=== PATIENT | male | born 1975 | race Caucasian/White ===

== ENCOUNTER 2018-11-06 12:00 | Emergency (ER) | payer SELFPAY ==
[~2018-11-06] VITALS: Ht 185.4 cm; Wt 81.6 kg
[2018-11-06 12:22] VITALS: BP 139/79
[2018-11-06] MEDS ORDERED: ACYC400T PO (12:39)
[2018-11-06] MEDS ORDERED: MELO7.5T29 PO (12:39)
--- NOTE | 2018-11-06 12:40 | PHYS DOC ---
Past History Past Medical History: Other Additional Past Medical Histor: hepatitis C Past Surgical History: No Surgical History Smoking: Cigarettes, Greater than 1 pack/day Alcohol Use: None Drug Use: None Adult General Chief Complaint Chief Complaint: SEXUALLY TRANSMITTED DISEASE HPI HPI Patient is a 43-year-old male presents with a rash on his penis. This is been present for the past week to week and a half. Any kind of touch makes it worse. Denies any fever. Denies any dysuria. Patient has been sexually active with several partners. Nothing seems to make the symptoms better. Denies any bleeding. Denies any trauma. Symptoms are moderate to severe in intensity.[] Review of Systems Review of Systems Constitutional: Denies fever or chills [] Eyes: Denies change in visual acuity, redness, or eye pain [] HENT: Denies nasal congestion or sore throat [] Respiratory: Denies cough or shortness of breath [] Cardiovascular: No chest pain or palpitations[] GI: Denies abdominal pain, nausea, vomiting, bloody stools or diarrhea [] : Denies dysuria or hematuria [] Musculoskeletal: Denies back pain or joint pain [] Integument: See history of present illness[] Neurologic: Denies headache, focal weakness or sensory changes [] Endocrine: Denies polyuria or polydipsia [] All other systems were reviewed and found to be within normal limits, except as documented in this note. Allergies Allergies Allergies Coded Allergies Type Severity Reaction Last Updated Verified No Known Drug Allergies 11/01/13 No Physical Exam Physical Exam Constitutional: Well developed, well nourished, no acute distress, non-toxic appearance. [] HENT: Normocephalic, atraumatic, bilateral external ears normal, oropharynx moist, no oral exudates, nose normal. [] Eyes: PERRLA, EOMI, conjunctiva normal, no discharge. [] Neck: Normal range of motion, no tenderness, supple, no stridor. [] Cardiovascular:Heart rate regular rhythm, no murmur [] Lungs & Thorax: Bilateral breath sounds clear to auscultation [] Abdomen: Bowel sounds normal, soft, no tenderness, no masses, no pulsatile masses. : Normal male, circumcised, bilateral descended testes without tenderness. No urethral discharge. There several ulcerated areas on the dorsal aspect of the davidson. No pimples or blisters noted. [] Skin: Aside from the region: Warm, dry, no erythema, no rash. [] Back: No tenderness, no CVA tenderness. [] Extremities: No tenderness, no cyanosis, no clubbing, ROM intact, no edema. [] Neurologic: Alert and oriented X 3, normal motor function, normal sensory function, no focal deficits noted. [] Psychologic: Affect normal, judgement normal, mood normal. [] EKG EKG [] Radiology/Procedures Radiology/Procedures [] Course & Med Decision Making Course & Med Decision Making Pertinent Labs and Imaging studies reviewed. (See chart for details) Medical decision making: Concerned about herpes virus given the appearance of the rash. Other STDs are being evaluated for and will be treated if they are positive. There is no evidence of sepsis. No evidence of staph scalded skin syndrome. No evidence of toxic epidermal necrolysis. No syphilitic buboe, no chancroid.[] Dragon Disclaimer Dragon Disclaimer This electronic medical record was generated, in whole or in part, using a voice recognition dictation system. Departure Departure: Impression: Primary Impression: Herpes genitalis in men Disposition: HOME, SELF-CARE Condition: IMPROVED Referrals: PCPDEDRICK (PCP) Patient Instructions: Genital Herpes Additional Instructions: No sexual intercourse until evaluated by your primary care physician. Keep the area clean and dry. Follow-up with your regular doctor in 2 days. Take medication as prescribed. Return to the ER if worsening pain, fever of more than 101, or any other concerns. Scripts Meloxicam (MELOXICAM) 7.5 Mg Tablet 7.5 MG PO DAILY for PAIN, #20 TAB Prov: KIMI MULLINS DO 11/06/18 Acyclovir (ACYCLOVIR) 400 Mg Tablet 1 TAB PO TID for herpes virus, #30 TAB Prov: KIMI MULLINS DO 11/06/18 KIMI MULLINS DO November 06, 2018 12:40
[2018-11-06 12:56] LABS: BACTERIA,URINE 0 /HPF (0-FEW); BILIRUBIN,URINE NEG (NEG); CLARITY,URINE CLEAR; COLOR,URINE AMBER; GLUCOSE,URINE NEG (NEG); NITRITE,URINE NEG (NEG); RBC,URINE 0 /HPF (0-2); SQUAMOUS EPITHELIAL CELL,UR OCC /LPF; UROBILINOGEN,URINE 0.2 mg/dL (0.2 mg/dL); WBC,URINE 0 /HPF (0-4)
[2018-11-16 11:08] LABS: VIRAL CULT FINAL No virus isolated. (.)
== END 2018-11-06 12:45 | disposition home or self-care (01) ==
LOC: ER 12:00
DX: A60.02 Herpesviral infection of other male genital organs (principal); F17.210 Nicotine dependence, cigarettes, uncomplicated
CPT/HCPCS: 36415; 81001; 87252; 87491; 87591; 99284

== ENCOUNTER 2020-02-12 04:21 | Emergency (ER) | payer SELFPAY ==
[~2020-02-12] VITALS: Ht 185.4 cm; Wt 84.0 kg
[~2020-02-12 04:21] MED LIST: ACYC400T PO; MELO7.5T29 PO
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
[2020-02-12] MEDS ORDERED: KETOROLAC 60 MG/2 ML VIAL. IM ONE (05:15)
[2020-02-12 05:23] LABS: BARBITURATES NEG (NEG); BENZODIAZEPINES NEG (NEG); CANNABINOIDS NEG (NEG); COCAINE NEG (NEG); METHADONE NEG (NEG); OPIATES NEG (NEG); PHENCYCLIDINE NEG (NEG)
[2020-02-12 05:25] LABS: AMPHETAMINE/METHAMPHETAMINE POS (NEG)
[2020-02-12 05:29] LABS: BACTERIA,URINE 0 /HPF (0-FEW); BILIRUBIN,URINE NEG (NEG); CLARITY,URINE CLEAR; COLOR,URINE YELLOW; GLUCOSE,URINE NEG (NEG); NITRITE,URINE NEG (NEG); RBC,URINE 0 /HPF (0-2); SQUAMOUS EPITHELIAL CELL,UR OCC /LPF; UROBILINOGEN,URINE 0.2 mg/dL (0.2 mg/dL); WBC,URINE 0 /HPF (0-4)
[2020-02-12 05:30] VITALS: BP 125/95
== END 2020-02-12 05:30 | disposition home or self-care (01) ==
LOC: ER 04:21
DX: F15.10 Other stimulant abuse, uncomplicated (principal); G89.29 Other chronic pain; M54.5 Low back pain; R30.0 Dysuria; F41.9 Anxiety disorder, unspecified; M19.90 Unspecified osteoarthritis, unspecified site; F31.9 Bipolar disorder, unspecified; F20.9 Schizophrenia, unspecified; F43.10 Post-traumatic stress disorder, unspecified; F17.210 Nicotine dependence, cigarettes, uncomplicated; F12.10 Cannabis abuse, uncomplicated
CPT/HCPCS: 36415; 80307; 81001; 96372; 99283; J1885

== ENCOUNTER 2020-04-08 12:16 | Emergency (ER) | payer SELFPAY ==
[~2020-04-08] VITALS: Ht 185.4 cm; Wt 77.0 kg
[2020-04-08 12:51] VITALS: BP 120/69
--- NOTE | 2020-04-08 13:36 | PHYS DOC ---
Past History Past Medical History: Anxiety, Arthritis, Bipolar, Hepatitis, Schizophrenia, STD, Other Additional Past Medical Histor: hepatitis C Past Surgical History: No Surgical History Smoking: Cigarettes, Greater than 1 pack/day Alcohol Use: None Drug Use: Amphetamine, Marijuana, Methamphetamine General Adult EDM: Chief Complaint: SUICIDAL IDEATION HPI: HPI: 44-year-old male presents with suicidal ideation. He was seen here by the [facility]. Patient is hep C positive. He is not sure if he is HIV positive he has requested that we test him. He has been having persistent suicidal thoughts for "some time". He does not have a specific plan. He is just tired of these thoughts. He denies any other medical complaints Review of Systems: Review of Systems: Constitutional: Denies fever or chills Eyes: Denies change in visual acuity HENT: Denies nasal congestion or sore throat Respiratory: Denies cough or shortness of breath Cardiovascular: Denies chest pain or edema GI: Denies abdominal pain, nausea, vomiting, bloody stools or diarrhea : Denies dysuria Musculoskeletal: Denies back pain or joint pain Integument: Denies rash Neurologic: Denies headache, focal weakness or sensory changes Endocrine: Denies polyuria or polydipsia Lymphatic: Denies swollen glands Psychiatric: Depression, suicidal ideation Allergies: Allergies: Allergies Coded Allergies Type Severity Reaction Last Updated Verified No Known Drug Allergies 04/08/20 No Physical Exam: PE: Constitutional: Well developed, well nourished, no acute distress, non-toxic appearance. [] HENT: Normocephalic, atraumatic, bilateral external ears normal, oropharynx moist, no oral exudates, nose normal. [] Eyes: PERRLA, EOMI, conjunctiva normal, no discharge. [] Neck: Normal range of motion, no tenderness, supple, no stridor. [] Cardiovascular: Heart rate regular rhythm, no murmur [] Lungs & Thorax: Bilateral breath sounds clear to auscultation [] Abdomen: Bowel sounds normal, soft, no tenderness, no masses, no pulsatile masses. [] Skin: Warm, dry, no erythema, no rash. [] Back: No tenderness, no CVA tenderness. [] Extremities: No tenderness, no cyanosis, no clubbing, ROM intact, no edema. [] Neurologic: Alert and oriented X 3, normal motor function, normal sensory function, no focal deficits noted. [] Psychologic: Affect normal, judgement normal, mood depressed. [] Current Patient Data: Vital Signs: Vital Signs Date Time Temp Pulse Resp B/P (MAP) Pulse Ox O2 Delivery O2 Flow Rate FiO2 04/08/20 12:51 98.3 96 18 120/69 (86) 98 EKG: EKG: [] Radiology/Procedures: Radiology/Procedures: [] Heart Score: Risk Factors: Risk Factors: DM, Current or recent (<one month) smoker, HTN, HLP, family history of CAD, obesity. Risk Scores: Score 0 - 3: 2.5% MACE over next 6 weeks - Discharge Home Score 4 - 6: 20.3% MACE over next 6 weeks - Admit for Clinical Observation Score 7 - 10: 72.7% MACE over next 6 weeks - Early Invasive Strategies Course & Med Decision Making: Course & Med Decision Making Pertinent Labs and Imaging studies reviewed. (See chart for details) The patient's labs are unremarkable. I have ordered HIV as he requested. The results are not back yet. He will follow-up in the future. He is medically stable for psychiatric evaluation. The psychiatric screener has determined that the patient can be safely discharged with a safety plan. I agree this is reasonable. He is stable for discharge at this time. [] Sivan Disclaimer: Sivan Disclaimer: This electronic medical record was generated, in whole or in part, using a voice recognition dictation system. Departure Departure: Impression: Primary Impression: Suicidal thoughts Disposition: 01 DC HOME SELF CARE/HOMELESS Condition: STABLE Referrals: PCP,DEDRICK (PCP) Patient Instructions: Suicidal Feelings, How to Help Yourself TAD LUZ DO Apr 08, 2020 13:36
[2020-04-08 13:45] LABS: BASO % 0 % (0-3); EOS # 0.2 x10^3/uL (0.0-0.7); EOS % 3 % (0-3); HEMOGLOBIN 14.1 g/dL (13.0-17.5); LYMPH # 1.7 x10^3/uL (1.0-4.8); LYMPH % 26 % (24-48); MEAN CORPUSCULAR HEMOGLOBIN 30 pg (25-35); MEAN CORPUSCULAR HGB CONC 34 g/dL (31-37); MEAN CORPUSCULAR VOLUME 89 fL (79-100); MONO # 0.5 x10^3/uL (0.0-1.1); MONO % 8 % (0-9); NEUT % 63 % (31-73); PLATELET COUNT 279 x10^3/uL (140-400); RED BLOOD COUNT 4.72 x10^6/uL (4.30-5.70); RED CELL DISTRIBUTION WIDTH 12.7 % (11.5-14.5); WHITE BLOOD COUNT 6.4 x10^3/uL (4.0-11.0)
[2020-04-08 14:03] LABS: CALCIUM 8.7 mg/dL (8.5-10.1); CREATININE 1.1 mg/dL (0.7-1.3); GFR 72.1; POTASSIUM 3.2 mmol/L (3.5-5.1)
[2020-04-08 14:15] LABS: ALBUMIN 3.4 g/dL (3.4-5.0); ALBUMIN/GLOBULIN RATIO 0.9 (1.0-1.7); TOTAL BILIRUBIN 0.2 mg/dL (0.2-1.0)
[2020-04-08] MEDS ORDERED: NAPROXEN 500 MG TABLET PO ONE (15:30)
== END 2020-04-08 15:55 | disposition home or self-care (01) ==
LOC: ER 12:16
DX: R45.851 Suicidal ideations (principal); F41.9 Anxiety disorder, unspecified; M19.90 Unspecified osteoarthritis, unspecified site; F31.9 Bipolar disorder, unspecified; F20.9 Schizophrenia, unspecified; F17.210 Nicotine dependence, cigarettes, uncomplicated; F15.10 Other stimulant abuse, uncomplicated; F12.10 Cannabis abuse, uncomplicated
CPT/HCPCS: 36415; 80053; 85025; 86703; 99284; 99285

== ENCOUNTER 2020-04-28 17:05 | Emergency (ER) | payer SELFPAY ==
[~2020-04-28] VITALS: Ht 185.4 cm; Wt 89.0 kg
[2020-04-28 17:20] VITALS: BP 122/73
--- NOTE | 2020-04-28 17:38 | PHYS DOC ---
Past History Past Medical History: Anxiety, Arthritis, Bipolar, Depression, Hepatitis, Schizophrenia, STD, Other Additional Past Medical Histor: hepatitis C Past Surgical History: No Surgical History Smoking: Cigarettes, Greater than 1 pack/day Alcohol Use: None Drug Use: Amphetamine, Marijuana, Methamphetamine General Adult EDM: Chief Complaint: SUICIDAL IDEATION HPI: HPI: "... I am having too many thoughts about suicide... I probably need to get back on my meds... I been off for approximately a year now... I was on Haldol, Seroquel and Klonopin... Has had problems with depression, bipolar and schizoaffective disorder... I tried to kill myself before by overdosing on my prescription meds... The last time I tried to kill myself by overdosing on meth... The last place that was about it was [facility]... I have also been to also [facility]... Patient is a 44 year old male who presents with above hx and complaints of suicidal ideation. Patient denies any active hallucinations currently. Does admit to methamphetamine use, tobacco and marijuana use. Patient primary use of methamphetamine is my smoking it. Patient states he has had depression anxiety problems since a teenager. Patient has past medical history of arthritis, anxiety, bipolar, hepatitis C, SCDs, tobacco, marijuana, methamphetamine use. No recent travel outside the [place] area. No specific ill contacts. Patient not following with primary care currently. Patient does not verbalize a specific plan for killing himself, it is anxious he may act upon the thoughts. Patient seen on April 08 for similar presentation. Evaluated by telepsych at that time felt to be medically /psychologically stable on the visit of 04/08. Review of Systems: Review of Systems: Constitutional: Denies fever or chills Eyes: Denies change in visual acuity HENT: Denies nasal congestion or sore throat Respiratory: Denies cough or shortness of breath Cardiovascular: Denies chest pain or edema GI: Denies abdominal pain, nausea, vomiting, bloody stools or diarrhea : Denies dysuria Musculoskeletal: Denies back pain or joint pain Integument: Denies rash Neurologic: Denies headache, focal weakness or sensory changes Endocrine: Denies polyuria or polydipsia Lymphatic: Denies swollen glands Psychiatric: Complains of depression and anxiety Family History: Family History: Pt. reports mother is " Fuck up" mental, refuses to give further hx., Father history is limited Current Medications: Current Meds: See nursing for home meds Allergies: Allergies: Allergies Coded Allergies Type Severity Reaction Last Updated Verified No Known Drug Allergies 04/08/20 No Physical Exam: PE: Constitutional: no acute distress, non-toxic appearance. [] HENT: Normocephalic, atraumatic, bilateral external ears normal, oropharynx moist, no oral exudates, nose normal. [] Eyes: PERRLA, EOMI, conjunctiva normal, no discharge. [] Neck: Normal range of motion, no tenderness, supple, no stridor. [] Cardiovascular:Heart rate regular rhythm, no murmur [] Lungs & Thorax: Bilateral breath sounds equal apex with scattered wheezes on auscultation [] Abdomen: Bowel sounds normal, soft, no tenderness, no masses, no pulsatile masses. [] Skin: Warm, dry, no erythema, no rash. Tattoos Back: No tenderness, no CVA tenderness. [] Extremities: No tenderness, no cyanosis, no clubbing, ROM intact, no edema. [] Neurologic: Alert and oriented X 3, moves all extremities and has distal sensory no focal deficits noted. [] Psychologic: Affect anxious, judgement normal, mood reports depression and frequent thoughts of suicidal ideation Current Patient Data: Vital Signs: Vital Signs Date Time Temp Pulse Resp B/P (MAP) Pulse Ox O2 Delivery O2 Flow Rate FiO2 04/28/20 17:20 97.9 92 16 122/73 (89) 98 Room Air EKG: EKG: My interpretation EKG shows a sinus rhythm at 83 bpm. No findings acute morphology [] Radiology/Procedures: Radiology/Procedures: [][address] [address] IMAGING REPORT Signed PATIENT: HALIMA TRONCOSO ACCOUNT: [id number] : 1975 LOCATION: ER AGE: 44 SEX: M EXAM STATUS: REG ER ORD. PHYSICIAN: MARCO DEL REAL MD REASON: dyspnea, smoking meth PROCEDURE: PORTABLE CHEST 1V PORTABLE CHEST 1V History: Reason: dyspnea, smoking meth / Spl. Instructions: / History: Comparison: None. Findings: No consolidation or pleural effusion. Normal heart size. No pneumothorax. Impression: 1. No acute cardiopulmonary process. Electronically signed by: Juan A Stanley DO (04/28/2020 6:04 PM) [facility] DICTATED AND SIGNED BY: JUAN A STANLEY DO DATE: 04/28/20 1807 CC: MARCO DEL REAL MD; PCP,NO ~ Heart Score: Risk Factors: Risk Factors: DM, Current or recent (<one month) smoker, HTN, HLP, family history of CAD, obesity. Risk Scores: Score 0 - 3: 2.5% MACE over next 6 weeks - Discharge Home Score 4 - 6: 20.3% MACE over next 6 weeks - Admit for Clinical Observation Score 7 - 10: 72.7% MACE over next 6 weeks - Early Invasive Strategies Course & Med Decision Making: Course & Med Decision Making Pertinent Labs and Imaging studies reviewed. (See chart for details) Pt. at 2100 hrs. refused to talk to Tele.Psych. Pt. then demanded immediate discharge, and his property returned to him. Pt. encouraged to follow up with counseling center. Impression: 1. Reports suicidal ideation 2. History of depression bipolar 3. History of methamphetamine abuse 4. Tobacco marijuana use 5. Hx Hepatitis C 6. Hx. of Schizoaffective Disorder [] Dragon Disclaimer: Dragsusi Disclaimer: This electronic medical record was generated, in whole or in part, using a voice recognition dictation system. Departure Departure: Referrals: PCP,DEDRICK (PCP) [place]on Disclaimer This chart was dictated in whole or in part using Voice Recognition software in a busy, high-work load, and often noisy Emergency Department environment. It may contain unintended and wholly unrecognized errors or omissions. MARCO DEL REAL MD Apr 28, 2020 17:38
[2020-04-28] MEDS ORDERED: MVI, ADULT NO.4 WITH VIT K 10 ML, THIAMINE INJ 100 MG in IV RINGERS SOLUTION,LACTATED 1... IV ONE (17:45)
[2020-04-28 17:58] LABS: BASO % 1 % (0-3); EOS # 0.2 x10^3/uL (0.0-0.7); EOS % 3 % (0-3); HEMOGLOBIN 14.2 g/dL (13.0-17.5); LYMPH # 1.7 x10^3/uL (1.0-4.8); LYMPH % 26 % (24-48); MEAN CORPUSCULAR HEMOGLOBIN 30 pg (25-35); MEAN CORPUSCULAR HGB CONC 33 g/dL (31-37); MEAN CORPUSCULAR VOLUME 90 fL (79-100); MONO # 0.8 x10^3/uL (0.0-1.1); MONO % 12 % (0-9); NEUT # 3.8 x10^3uL (1.8-7.7); NEUT % 59 % (31-73); PLATELET COUNT 260 x10^3/uL (140-400); RED BLOOD COUNT 4.79 x10^6/uL (4.30-5.70); RED CELL DISTRIBUTION WIDTH 12.9 % (11.5-14.5); WHITE BLOOD COUNT 6.5 x10^3/uL (4.0-11.0)
--- NOTE | 2020-04-28 18:07 | RAD ---
PORTABLE CHEST 1V History: Reason: dyspnea, smoking meth / Spl. Instructions: / History: Comparison: None. Findings: No consolidation or pleural effusion. Normal heart size. No pneumothorax. Impression: 1. No acute cardiopulmonary process. Electronically signed by: Juan A Khan DO (04/28/2020 6:04 PM) [facility]
--- NOTE | 2020-04-28 18:07 | EKG ---
[address] [address] Test Date: 2020-04-28 Test Time: 18:02:39 Pat Name: HALIMA TRONCOSO Department: Room: Gender: M Orthotic/Prosthetic Practitioner: JENNIFER : 1975 Requested By: MARCO DEL REAL Order Number: [id number] Reading MD: Measurements Intervals [place] Rate: 83 P: 65 SD: 148 QRS: 19 QRSD: 68 T: 44 QT: 356 QTc: 424 Interpretive Statements SINUS RHYTHM OTHERWISE NORMAL ECG RI6.02 No previous ECG available for comparison
[2020-04-28] MEDS ORDERED: THIAMINE IM 200 MG/2 ML VIAL. IM ONE (18:13)
[2020-04-28] MEDS ORDERED: MVI, ADULT NO.4 WITH VIT K 10 ML VIAL IV ONE (18:13)
[2020-04-28 18:33] LABS: CALCIUM 9.4 mg/dL (8.5-10.1); CREATININE 0.9 mg/dL (0.7-1.3); GFR 90.8; POTASSIUM 3.9 mmol/L (3.5-5.1)
[2020-04-28 18:39] LABS: ALBUMIN 3.4 g/dL (3.4-5.0); DIRECT BILIRUBIN 0.1 mg/dL (0.0-0.2); MAGNESIUM 2.1 mg/dL (1.8-2.4); TOTAL BILIRUBIN 0.1 mg/dL (0.2-1.0); TOTAL PROTEIN 6.7 g/dL (6.4-8.2)
[2020-04-28 18:44] LABS: SALIC < 2.8 mg/dL (2.8-20.0)
[2020-04-28 18:45] LABS: ACETAMIN < 2.0 mcg/mL (10-30); ETHANOL < 10 mg/dL (0-10)
[2020-04-28 20:04] LABS: BACTERIA,URINE 0 /HPF (0-FEW); BILIRUBIN,URINE NEG (NEG); CLARITY,URINE CLEAR; COLOR,URINE STRAW; GLUCOSE,URINE NEG (NEG); NITRITE,URINE NEG (NEG); RBC,URINE 0 /HPF (0-2); UROBILINOGEN,URINE 0.2 mg/dL (0.2 mg/dL); WBC,URINE 0 /HPF (0-4)
[2020-04-28 20:12] LABS: BARBITURATES NEG (NEG); BENZODIAZEPINES NEG (NEG); CANNABINOIDS NEG (NEG); COCAINE NEG (NEG); METHADONE NEG (NEG); OPIATES NEG (NEG); PHENCYCLIDINE NEG (NEG)
[2020-04-28 20:22] LABS: AMPHETAMINE/METHAMPHETAMINE NEG (NEG)
== END 2020-04-28 21:27 | disposition home or self-care (01) ==
LOC: ER 17:05
DX: R45.851 Suicidal ideations (principal); F31.9 Bipolar disorder, unspecified; F15.10 Other stimulant abuse, uncomplicated; F25.9 Schizoaffective disorder, unspecified; F41.9 Anxiety disorder, unspecified; M19.90 Unspecified osteoarthritis, unspecified site; F17.210 Nicotine dependence, cigarettes, uncomplicated; F12.10 Cannabis abuse, uncomplicated; Z86.19 Personal history of other infectious and parasitic diseases
CPT/HCPCS: 36415; 71045; 80048; 80076; 80307; 80329; 81001; 83690; 83735; 84443; 84484; 85025; 85610; 85730; 93005; 99285; G0480

== ENCOUNTER 2020-09-16 15:04 | Emergency (ER) | payer SELFPAY ==
[~2020-09-16] VITALS: Ht 182.9 cm; Wt 81.0 kg
[2020-09-16] MEDS ORDERED: TAMSULOSIN 0.4 MG CAP.ER.24H. PO ONE (15:30)
[2020-09-16] MEDS ORDERED: KETOROLAC 15 MG/ML VIAL. IVP ONE (15:30)
[2020-09-16] MEDS ORDERED: IV NORMAL SALINE 1,000ML 1,000 ML IV ONE (15:30)
[2020-09-16 15:57] LABS: BASO % 1 % (0-3); EOS # 0.1 x10^3/uL (0.0-0.7); EOS % 2 % (0-3); HEMATOCRIT 44.2 % (39.0-53.0); HEMOGLOBIN 14.7 g/dL (13.0-17.5); LYMPH # 1.7 x10^3/uL (1.0-4.8); LYMPH % 25 % (24-48); MEAN CORPUSCULAR HEMOGLOBIN 30 pg (25-35); MEAN CORPUSCULAR HGB CONC 33 g/dL (31-37); MEAN CORPUSCULAR VOLUME 90 fL (79-100); MONO # 0.7 x10^3/uL (0.0-1.1); MONO % 10 % (0-9); NEUT # 4.3 x10^3uL (1.8-7.7); NEUT % 63 % (31-73); PLATELET COUNT 335 x10^3/uL (140-400); RED BLOOD COUNT 4.94 x10^6/uL (4.30-5.70); RED CELL DISTRIBUTION WIDTH 12.5 % (11.5-14.5); WHITE BLOOD COUNT 6.9 x10^3/uL (4.0-11.0)
[2020-09-16 16:05] LABS: CALCIUM 8.9 mg/dL (8.5-10.1); GFR 80.1; POTASSIUM 3.7 mmol/L (3.5-5.1)
--- NOTE | 2020-09-16 16:07 | RAD ---
CT abdomen pelvis without contrast dated 09/16/2020. No comparison available. Clinical indication: Bilateral flank pain. TECHNIQUE: Contiguous axial imaging the abdomen pelvis performed without the administration of IV or oral contra st. One or more of the following individualized dose reduction techniques were utilized for this examinat ion: 1. Automated exposure control 2. Adjustment of the mA and/or kV according to patient size 3. Use of iterative reconstruction technique. FINDINGS: Limited images of lung bases are clear. Heart size within normal limits. No pleural or pericardial ef fusion. Solid abdominal viscera not well evaluated in the absence of contrast material. No apparent attenuati on abnormality of the liver or spleen. Pancreas, adrenal glands, gallbladder unremarkable. Kidneys are symmetric in size and attenuation. No calcific renal or ureteral stone. No hydronephrosis . Unopacified GI tract normal in caliber and contour. No focal bowel wall thickening. No inflammatory s tranding in the mesentery. The appendix is normal in caliber. No ascites or lymphadenopathy. Abdomina l aorta normal in caliber. Images of pelvis show nondistended urinary bladder. There is mild diffuse bladder wall thickening. No free fluid or pelvic lymphadenopathy. Prostate gland is normal in size. There is inflammatory strand ing in the bilateral inguinal canal with prominent vascular structures in the scrotal sac. Small hydr ocele on the right. There are couple of borderline enlarged bilateral inguinal lymph nodes, nonspecif ic. Bone windows show no acute findings. Multilevel spondylosis. IMPRESSION: 1. No acute abnormality of abdomen or pelvis. No renal stone or hydronephrosis. Normal appendix. 2. Mild wall thickening of the urinary bladder, nonspecific. Consider acute or chronic cystitis. 3. Nonspecific inflammatory stranding in the bilateral inguinal canal with prominent tubular foci of the bilateral scrotal sac. Consider epididymitis or varicocele. There is a small hydrocele on the rig ht. Electronically signed by: Jd Chua MD (09/16/2020 4:05 PM) [facility]
[2020-09-16 16:11] LABS: ALBUMIN 3.7 g/dL (3.4-5.0); TOTAL BILIRUBIN 0.5 mg/dL (0.2-1.0); TOTAL PROTEIN 7.5 g/dL (6.4-8.2)
[2020-09-16 17:19] LABS: BARBITURATES NEG (NEG); BENZODIAZEPINES NEG (NEG); CANNABINOIDS NEG (NEG); COCAINE NEG (NEG); METHADONE NEG (NEG); OPIATES NEG (NEG); PHENCYCLIDINE NEG (NEG)
--- NOTE | 2020-09-16 17:24 | PHYS DOC ---
Past History Past Medical History: No Pertinent History Additional Past Medical Histor: hepatitis C Past Surgical History: No Surgical History Smoking: Cigarettes, Greater than 1 pack/day Alcohol Use: None Drug Use: Amphetamine, Marijuana, Methamphetamine General Adult EDM: Chief Complaint: FLANK PAIN HPI: HPI: 45-year-old male Review of Systems: Review of Systems: Constitutional: Denies fever or chills Eyes: Denies change in visual acuity HENT: Denies nasal congestion or sore throat Respiratory: Denies cough or shortness of breath Cardiovascular: Denies chest pain or edema GI: Denies abdominal pain, nausea, vomiting, bloody stools or diarrhea : Denies dysuria Musculoskeletal: Denies back pain or joint pain Integument: Denies rash Neurologic: Denies headache, focal weakness or sensory changes Endocrine: Denies polyuria or polydipsia Lymphatic: Denies swollen glands Psychiatric: Denies depression or anxiety Current Medications: Current Meds: Current Medications Medications (Trade) Dose Ordered Sig/José Start Time Stop Time Status Last Admin Dose Admin Ketorolac Tromethamine (Toradol 15mg Vial) 15 mg 1X ONCE 09/16/20 15:30 09/16/20 15:31 DC 09/16/20 15:34 15 MG Sodium Chloride 1,000 ml @ 1,000 mls/hr 1X ONCE 09/16/20 15:30 09/16/20 16:29 DC 09/16/20 15:35 1,000 MLS/HR Tamsulosin HCl (Flomax) 0.4 mg 1X ONCE 09/16/20 15:30 09/16/20 15:31 DC 09/16/20 15:34 0.4 MG Allergies: Allergies: Allergies Coded Allergies Type Severity Reaction Last Updated Verified No Known Drug Allergies 04/08/20 No Physical Exam: PE: Constitutional: Well developed, well nourished, no acute distress, non-toxic appearance. HENT: Normocephalic, atraumatic, Eyes: EOMI, conjunctiva normal, no discharge. Neck: Normal range of motion, supple, Cardiovascular: S1/2 present, regular rhythm Lungs & Thorax: Speaking in full sentences, bilateral equal chest rise, no tachypnea or increased work of breathing Abdomen: soft, no tenderness, Skin: Warm, dry, no erythema, no rash. [] Back: No tenderness, no CVA tenderness. [] Extremities: No tenderness, no cyanosis, no lower extremity edema Neurologic: Alert and oriented X 3, normal motor function, normal sensory function, no focal deficits noted. [] Psychologic: Affect normal, judgement normal, mood normal. [] Current Patient Data: Labs: Laboratory Tests Test 09/16/20 15:27 White Blood Count 6.9 x10^3/uL (4.0-11.0) Red Blood Count 4.94 x10^6/uL (4.30-5.70) Hemoglobin 14.7 g/dL (13.0-17.5) Hematocrit 44.2 % (39.0-53.0) Mean Corpuscular Volume 90 fL (79-100) Mean Corpuscular Hemoglobin 30 pg (25-35) Mean Corpuscular Hemoglobin Concent 33 g/dL (31-37) Red Cell Distribution Width 12.5 % (11.5-14.5) Platelet Count 335 x10^3/uL (140-400) Neutrophils (%) (Auto) 63 % (31-73) Lymphocytes (%) (Auto) 25 % (24-48) Monocytes (%) (Auto) 10 % (0-9) H Eosinophils (%) (Auto) 2 % (0-3) Basophils (%) (Auto) 1 % (0-3) Neutrophils # (Auto) 4.3 x10^3uL (1.8-7.7) Lymphocytes # (Auto) 1.7 x10^3/uL (1.0-4.8) Monocytes # (Auto) 0.7 x10^3/uL (0.0-1.1) Eosinophils # (Auto) 0.1 x10^3/uL (0.0-0.7) Basophils # (Auto) 0.0 x10^3/uL (0.0-0.2) Sodium Level 137 mmol/L (136-145) Potassium Level 3.7 mmol/L (3.5-5.1) Chloride Level 102 mmol/L (98-107) Carbon Dioxide Level 27 mmol/L (21-32) Anion Gap 8 (6-14) Blood Urea Nitrogen 14 mg/dL (8-26) Creatinine 1.0 mg/dL (0.7-1.3) Estimated GFR (Cockcroft-Gault) 80.1 BUN/Creatinine Ratio 14 (6-20) Glucose Level 105 mg/dL (70-99) H Lactic Acid Level 1.4 mmol/L (0.4-2.0) Calcium Level 8.9 mg/dL (8.5-10.1) Total Bilirubin 0.5 mg/dL (0.2-1.0) Aspartate Amino Transferase (AST) 22 U/L (15-37) Alanine Aminotransferase (ALT) 48 U/L (16-63) Alkaline Phosphatase 62 U/L (46-116) Total Protein 7.5 g/dL (6.4-8.2) Albumin 3.7 g/dL (3.4-5.0) Albumin/Globulin Ratio 1.0 (1.0-1.7) Vital Signs: Vital Signs Date Time Temp Pulse Resp B/P (MAP) Pulse Ox O2 Delivery O2 Flow Rate FiO2 09/16/20 15:17 98.4 119 18 118/72 (87) 98 Room Air EKG: EKG: [] Radiology/Procedures: Radiology/Procedures: [] IMAGING REPORT Signed PATIENT: HALIMA TRONCOSO ACCOUNT: [id number] : 1975 LOCATION: ER AGE: 45 SEX: M EXAM STATUS: REG ER ORD. PHYSICIAN: MATT MUÑIZ DO REASON: bl scrotal pain PROCEDURE: TESTICULAR/SCROTUM Testicular ultrasound dated 09/16/2020. No comparison available. CLINICAL INDICATION: Testicle pain and swelling. FINDINGS: Right testicle measures 4.4 x 3.5 x 2.9 cm. Left testicle measures 4.3 x 3.4 x 2.6 cm. No focal testicular mass. There is normal color flow to both testicles. There is some increased vascularity the bilateral epididymal tail. Epididymides are otherwise unremarkable. No significant hydrocele or varicocele. IMPRESSION: 1. Normal sonographic appearance of the testicles. 2. Increased vascularity of the bilateral parietal tail, nonspecific but possibly related to epididymitis. Electronically signed by: Jd Chua MD (09/16/2020 5:59 PM) [facility] DICTATED AND SIGNED BY: JD CHUA MD DATE: 09/16/20 0387 CC: PCP,NO; MATT MUÑIZ DO ~MTH0 0 IMAGING REPORT Signed PATIENT: HALIMA TRONCOSO ACCOUNT: [id number] : 1975 LOCATION: ER AGE: 45 SEX: M EXAM STATUS: REG ER ORD. PHYSICIAN: MATT MUÑIZ DO REASON: bl flank pain PROCEDURE: CT ABDOMEN PELVIS WO CONTRAST CT abdomen pelvis without contrast dated 09/16/2020. No comparison available. Clinical indication: Bilateral flank pain. TECHNIQUE: Contiguous axial imaging the abdomen pelvis performed without the administration of IV or oral contrast. One or more of the following individualized dose reduction techniques were utilized for this examination: 1. Automated exposure control 2. Adjustment of the mA and/or kV according to patient size 3. Use of iterative reconstruction technique. FINDINGS: Limited images of lung bases are clear. Heart size within normal limits. No pleural or pericardial effusion. Solid abdominal viscera not well evaluated in the absence of contrast material. No apparent attenuation abnormality of the liver or spleen. Pancreas, adrenal glands, gallbladder unremarkable. Kidneys are symmetric in size and attenuation. No calcific renal or ureteral stone. No hydronephrosis. Unopacified GI tract normal in caliber and contour. No focal bowel wall thickening. No inflammatory stranding in the mesentery. The appendix is normal in caliber. No ascites or lymphadenopathy. Abdominal aorta normal in caliber. Images of pelvis show nondistended urinary bladder. There is mild diffuse bladder wall thickening. No free fluid or pelvic lymphadenopathy. Prostate gland is normal in size. There is inflammatory stranding in the bilateral inguinal canal with prominent vascular structures in the scrotal sac. Small hydrocele on the right. There are couple of borderline enlarged bilateral inguinal lymph nodes, nonspecific. Bone windows show no acute findings. Multilevel spondylosis. IMPRESSION: 1. No acute abnormality of abdomen or pelvis. No renal stone or hydronephrosis. Normal appendix. 2. Mild wall thickening of the urinary bladder, nonspecific. Consider acute or chronic cystitis. 3. Nonspecific inflammatory stranding in the bilateral inguinal canal with prominent tubular foci of the bilateral scrotal sac. Consider epididymitis or varicocele. There is a small hydrocele on the right. Electronically signed by: Jd Chua MD (09/16/2020 4:05 PM) [facility] DICTATED AND SIGNED BY: JD CHUA MD DATE: 09/16/20 1600 CC: PCP,NO; MATT MUÑIZ DO ~MTH0 0 Heart Score: C/O Chest Pain: No Risk Factors: Risk Factors: DM, Current or recent (<one month) smoker, HTN, HLP, family history of CAD, obesity. Risk Scores: Score 0 - 3: 2.5% MACE over next 6 weeks - Discharge Home Score 4 - 6: 20.3% MACE over next 6 weeks - Admit for Clinical Observation Score 7 - 10: 72.7% MACE over next 6 weeks - Early Invasive Strategies Course & Med Decision Making: Course & Med Decision Making Pertinent Labs and Imaging studies reviewed. (See chart for details) Will discharge home with strict ED return precautions were given for []. Arben esqueda urgent outpatient follow-up with PMD and urology. Life-threatening processes were considered but are low suspicion at this time, given history, physical exam and ED workup. Pt was educated on all prescription medications and adverse effects. All patient's questions were answered and pt was stable at time of discharge. Life/limb-threatening differential includes but is not limited to, ectopic , septic , sepsis/infection (endometritis, sti/pid, cystitis, pyelonephritis, Alpa's gangrene or necrotizing fasciitis, abscess), ovarian torsion, ruptured hemorrhagic ovarian cyst, endometriosis, ureterolithiasis, t hrombophlebitis, hemorrhage/DIC, organ prolapse, abdominal aortic aneurysm, mesenteric ischemia, neoplasm, bowel obstruction or surgical abdomen. I spoken with the patient and her caregivers. I explained the patient's condition, diagnoses and treatment plan based on the information available to me at this time. I have answered the patient and her caregiver's questions and addressed any concerns. The patient and her caregivers have a good understanding of patient's diagnosis, condition and treatment plan as can be expected at this point. Vital signs have been stable. Patient's condition is stable and appropriate for discharge from the emergency department. Patient will pursue further outpatient evaluation with primary care physician or other designated or consulting physician as outlined in the discharge instructions. The patient and/or caregivers are agreeable to this plan of care and follow-up instructions have been explained in detail. The patient and/or caregivers have received these instructions in written form and have expressed an understanding of the discharge instructions. The patient and/or caregivers are aware that any significant change of condition or worsening of symptoms should prompt immediate return to this or the closest emergency department or call to [id number] Disclaimer: Sivan Disclaimer: This electronic medical record was generated, in whole or in part, using a voice recognition dictation system. Departure Departure: Impression: Primary Impression: Epididymitis Additional Impressions: UTI (urinary tract infection) Methamphetamine abuse Disposition: 01 DC HOME SELF CARE/HOMELESS Condition: STABLE Referrals: PCP,NO (PCP) FOLLOW UP WITH FAMILY MEDICINE: Family Medicine Address: [address], [facility] [address] [place] [address] Patient Instructions: Epididymitis, Methamphetamine Abuse, Complications, Urinary Tract Infection Additional Instructions: FOLLOW UP WITH UROLOGY: For definitive management [facility] [place] [address] APPOINTMENTS: [phone] EMERGENCY DEPARTMENT GENERAL DISCHARGE INSTRUCTIONS Thank you for coming to [facility] (ED) today and trusting us with you care. We trust that you had a positivie experience in our Emergency Department. If you wish to speak to the department management, you may call the director at [phone]. YOUR FOLLOW UP INSTRUCTIONS ARE FOLLOWS: 1. Do you have a private Doctor? If you do not have a private doctor, please ask for a resource list of physicians or clinics that may be able to assist you with follow up care. 2. The Emergency Physician has interpreted your x-rays. The X-Ray specialist will also review them. If there is a change in the findings, you will be notified in 48 hours when at all possible. 3. A lab test or culture has been done, your results will be reviewed and you will be notified if you need a change in treatment. ADDITIONAL INSTRUCTIONS AND INFORMATION: 1. Your care today has been supervised by a physician who is specially trained in emergency care. Many problems require more than one evaluation for a complete diagnosis and treatment. We recommend that you schedule your follow up appointment as recommended to ensure complete treatment of you illness or injury. If you are unable to obtain follow up care and continue to have a problem, or if your condition worsens, we recommend that you return to the ED. 2. We are not able to safely determine your condition over the phone nor are we able to give sound medical advice over the phone. For these safety reasons, if you call for medical advice we will ask you to come to the ED for further evaluation. 3. If you have any questions regarding these discharge instructions please call the ED at [phone]. SAFETY INFORMATION: In the interest of safety, wellness, and injury prevention; we encourage you to wear your sealbelt, if you smoke; quite smoking, and we encourage family to use a protective helmet for bicycling and other sporting events that present an increased risk for head injury. IF YOUR SYMPTOMS WORSEN OR NEW SYMPTOMS DEVELOP, OR YOU HAVE CONCERNS ABOUT YOUR CONDITION; OR IF YOUR CONDITION WORSENS WHILE YOU ARE WAITING FOR YOUR FOLLOW UP APPOINTMENT; EITHER CONTACT YOUR PRIMARY CARE DOCTOR, THE PHYSICIAN WHOSE NAME AND NUMBER YOU WERE GIVEN, OR RETURN TO THE ED IMMEDIATELY. Scripts Levofloxacin (LEVOFLOXACIN) 500 Mg Tablet 1 TAB PO DAILY for uti/epididymitis for 14 Days, #14 TAB Prov: MATT MUÑIZ DO 09/16/20 MATT MUÑIZ DO Sep 16, 2020 17:24
[2020-09-16 17:25] LABS: AMPHETAMINE/METHAMPHETAMINE POS (NEG)
[2020-09-16] MEDS ORDERED: HYDROmorphone PF 1 MG/ML DISP.SYRIN IVP ONE (17:30)
[2020-09-16] MEDS ORDERED: cefTRIAXone IM 500 MG VIAL. IM ONE (17:30)
[2020-09-16] MEDS ORDERED: ONDANSETRON PF 4 MG/2 ML VIAL. IVP ONE (17:30)
[2020-09-16] MEDS ORDERED: IV NORMAL SALINE 50ML 50 ML ONE (17:31)
[2020-09-16] MEDS ORDERED: cefTRIAXone SODIUM 1 GM VIAL ONE (17:31)
[2020-09-16 17:35] LABS: BACTERIA,URINE 0 /HPF (0-FEW); BILIRUBIN,URINE NEG (NEG); CLARITY,URINE CLEAR; COLOR,URINE YELLOW; GLUCOSE,URINE NEG (NEG); NITRITE,URINE NEG (NEG); UROBILINOGEN,URINE 0.2 mg/dL (0.2 mg/dL)
--- NOTE | 2020-09-16 18:01 | RAD ---
Testicular ultrasound dated 09/16/2020. No comparison available. CLINICAL INDICATION: Testicle pain and swelling. FINDINGS: Right testicle measures 4.4 x 3.5 x 2.9 cm. Left testicle measures 4.3 x 3.4 x 2.6 cm. No focal testi cular mass. There is normal color flow to both testicles. There is some increased vascularity the bilateral epididymal tail. Epididymides are otherwise unremar kable. No significant hydrocele or varicocele. IMPRESSION: 1. Normal sonographic appearance of the testicles. 2. Increased vascularity of the bilateral parietal tail, nonspecific but possibly related to epididym itis. Electronically signed by: Jd Chua MD (09/16/2020 5:59 PM) [facility]
[2020-09-16] MEDS ORDERED: LEVO500T8 PO (18:25)
[2020-09-16 18:30] VITALS: BP 117/82
== END 2020-09-16 18:30 | disposition home or self-care (01) ==
LOC: ER 15:04
DX: N45.1 Epididymitis (principal); N39.0 Urinary tract infection, site not specified; F15.10 Other stimulant abuse, uncomplicated
CPT/HCPCS: 36415; 74176; 76870; 80053; 80307; 81001; 83605; 85025; 87040; 87086; 87491; 87591; 96361; 96365; 96375; 99285; J0696; J1170; J1885; J2405; J7030

== ENCOUNTER 2020-11-28 13:21 | Emergency (ER) | payer SELFPAY ==
[~2020-11-28] VITALS: Ht 182.9 cm; Wt 95.6 kg
[~2020-11-28 13:21] MED LIST changes: +ACYC-12 PO; -ACYC400T PO; +LEVO500T8 PO
[2020-11-28 14:09] VITALS: BP 130/79
--- NOTE | 2020-11-28 14:14 | PHYS DOC ---
Past History Past Medical History: No Pertinent History Additional Past Medical Histor: hepatitis C Past Surgical History: No Surgical History Smoking: Cigarettes, Greater than 1 pack/day Alcohol Use: None Drug Use: Amphetamine, Marijuana, Methamphetamine Adult General Chief Complaint Chief Complaint: ABDOMINAL PAIN HPI HPI Patient is a 45-year-old male presenting for right inguinal pain. Reports being in senior care and bearing down when having a bowel movement when he felt a pop in his right groin. Reports ever since then, he has had intermittent bulging into his testicle that is reducible. This occurred 2 months ago. Patient was discharged from senior care and recently exited drug rehab and presents today because he wants his hernia to be seen and fixed. Has been working out performing maneuvers such as lifts and squats without issues. Admits he is on current hepatitis C treatment and does not want any medications that would interfere with this. No fever, bladder or bowel incontinence, penile drainage or testicular pain Review of Systems Review of Systems Fourteen body systems of review of systems have been reviewed. See HPI for per tinent positives and negative responses, other cadlwell all other systems are negative, non-pertinent or non-contributory Allergies Allergies Allergies Coded Allergies Type Severity Reaction Last Updated Verified No Known Drug Allergies 04/08/20 No Physical Exam Physical Exam Constitutional: Well developed, well nourished, no acute distress, non-toxic appearance. HENT: Normocephalic, atraumatic, bilateral external ears normal, oropharynx moist, no oral exudates, nose normal. Eyes: PERRLA, EOMI, conjunctiva normal, no discharge. Neck: Normal range of motion, no tenderness, supple, no stridor. Cardiovascular: Heart rate regular, sinus rhythm, no murmurs rubs or gallops Lungs & Thorax: Bilateral breath sounds clear to auscultation Abdomen: Bowel sounds normal, soft, no tenderness, no masses, no pulsatile masses. Nonsurgical abdomen, no peritoneal signs. exam performed, unremarkable external genitalia, penis and comprehensive testicle exam unremarkable, there is a palpable bulge felt when coughing during right inguinal hernia check that is reducible Skin: Warm, dry, no erythema, no rash. Back: No tenderness, no CVA tenderness. Extremities: No tenderness, no cyanosis, no clubbing, ROM intact, no edema. Neurologic: Alert and oriented X 3, grossly normal motor & sensory function, no focal deficits noted. Psychologic: Affect normal, judgement normal, mood normal. Current Patient Data Vital Signs Vital Signs Date Time Temp Pulse Resp B/P (MAP) Pulse Ox O2 Delivery O2 Flow Rate FiO2 11/28/20 14:09 91 18 130/79 (96) 98 Vital Signs Date Time Temp Pulse Resp B/P (MAP) Pulse Ox O2 Delivery O2 Flow Rate FiO2 11/28/20 14:09 91 18 130/79 (96) 98 EKG EKG [] Radiology/Procedures Radiology/Procedures [] Heart Score C/O Chest Pain: No Risk Factors: Risk Factors: DM, Current or recent (<one month) smoker, HTN, HLP, family histo ry of CAD, obesity. Risk Scores: Risk Factors: DM, Current or recent (<one month) smoker, HTN, HLP, family history of CAD, obesity. Course & Med Decision Making Course & Med Decision Making Discussed with the patient all findings and diagnostic testing. I discussed most likely diagnosis of reducible right inguinal hernia. I disclose there is no emergent nor surgical indication for hospital admission for fixation at present given that this is a chronic issue and that mass is reducible. I educated patient extensively on need for close outpatient follow-up to review today's ER visit and outpatient surgery consultation for elective repair as it appears to be bothering patient intermittently. Strict return precautions were also discussed at length with good understanding by patient. Patient voiced understanding and agreement with the plan. Patient knows to come back for repeat evaluation if concerning signs or symptoms present prior to outpatient follow-up. Hemodynamically stable, ambulatory and well-appearing at time of disposition. Dragon Disclaimer Dragon Disclaimer This electronic medical record was generated, in whole or in part, using a voice recognition dictation system. Departure Departure: Impression: Primary Impression: Reducible right inguinal hernia Disposition: HOME / SELF CARE / HOMELESS Condition: STABLE Referrals: PCP,NO (PCP) MELISA BARRIOS MD Patient Instructions: Inguinal Hernia, Adult Additional Instructions: As discussed prior to ER departure, please call the general surgeon whose number is attached to this discharge packet to review need for outpatient surgery consultation and potential surgical intervention for your right inguinal hernia. As discussed, your hernia is reproducible meaning that it goes back into place. If your hernia lowers into your testicles again and is unable to be pushed back into place, there is concern for lack of blood flow and further complications, this needs to be seen and addressed by a surgeon. As such, if any concerning signs or symptoms like these and others discussed prior to ER departure occur prior to outpatient follow-up, please do not hesitate to come back for repeat evaluation. It was a pleasure to take care of you and I wish you the best going forward JAMES BANKS DO Nov 28, 2020 14:14
== END 2020-11-28 14:43 | disposition home or self-care (01) ==
LOC: ER 13:21
DX: K40.90 Unilateral inguinal hernia, without obstruction or gangrene, not specified as recurrent (principal); F17.210 Nicotine dependence, cigarettes, uncomplicated; F12.10 Cannabis abuse, uncomplicated; F15.10 Other stimulant abuse, uncomplicated
CPT/HCPCS: 99282

== ENCOUNTER 2021-02-05 13:46 | Emergency (ER) | payer SELFPAY ==
[~2021-02-05] VITALS: Ht 185.4 cm; Wt 80.6 kg
[2021-02-05 14:05] VITALS: BP 127/71
--- NOTE | 2021-02-05 14:27 | PHYS DOC ---
Past History Past Medical History: Bipolar, Depression Additional Past Medical Histor: hepatitis C Past Surgical History: No Surgical History Smoking: Cigarettes, Greater than 1 pack/day Alcohol Use: None Drug Use: Amphetamine, Marijuana, Methamphetamine General Adult EDM: Chief Complaint: SUICIDAL IDEATION HPI: HPI: 45 year old male presents with suicidal ideation for the past week that has been worsening. Attributes these feelings to various stressors at work and in his personal life. Reports history of bipolar disorder and he has been admitted previously for a suicide attempt. Most recently was admitted to an inpatient psychiatric facility in 10/2020 for methamphetamine abuse. He was prescribed Zyprexa at that time but reports he stopped taking it because he felt like it did not work. Denies taking any other psychiatric medications. Denies active SI/HI. Denies fevers/chills, nausea, vomiting, diarrhea, chest pain, cough, or shortness of breath. Review of Systems: Review of Systems: Constitutional: Denies fever or chills Eyes: Denies redness or eye pain HENT: Denies nasal congestion or sore throat Respiratory: Denies cough or shortness of breath Cardiovascular: Denies chest pain or palpitations GI: Denies abdominal pain, nausea, or vomiting : Denies dysuria or hematuria Musculoskeletal: Denies back pain or joint pain Integument: Denies rash or skin lesions Neurologic: Denies headache, focal weakness or sensory changes Psychiatric: Reports depression. Denies SI/HI Complete systems were reviewed and found to be within normal limits, except as documented in this note. Allergies: Allergies: Allergies Coded Allergies Type Severity Reaction Last Updated Verified No Known Drug Allergies 04/08/20 No Physical Exam: PE: Constitutional: Well developed, well nourished, no acute distress, non-toxic appearance HENT: Normocephalic, atraumatic Eyes: PERRL, EOMI, conjunctiva normal, no discharge Neck: Normal range of motion, no tenderness, supple Lungs & Thorax: No respiratory distress, equal chest rise and fall Abdomen: Soft, no tenderness Skin: Warm, dry, no erythema, no rash Back: No tenderness, no CVA tenderness Extremities: No tenderness, ROM intact, no edema Neurologic: Alert and oriented X 3, normal motor function, normal sensory function, no focal deficits noted Psychologic: Depressed affect, reports suicidal ideation, judgment normal EKG: EK: 93 BPM, normal sinus rhythm, no ST segment elevation, QRS 70ms, QT/QTc 344ms/430ms. Radiology/Procedures: Radiology/Procedures: [] Heart Score: C/O Chest Pain: N/A Course & Med Decision Making: Course & Med Decision Making 45 year old male with history of Bipolar Disorder presents with depressed mood and suicidal ideation. Labs obtained and posted to chart. Patient medically cleared for psychiatric evaluation. Norm (psych assessment team) evaluated patient with recommendation for inpatient psychiatric admission. 1745- [facility] accepting of transfer for inpatient psychiatric admission. Dr. Altamirano ([facility]) accepting. Discussed findings and plan with patient, who acknowledges understanding and agreement. Sivan Disclaimer: Sivan Disclaimer: This electronic medical record was generated, in whole or in part, using a voice recognition dictation system. Departure Departure: Impression: Primary Impression: Suicidal ideation Disposition: [address] [place] [address] ([facility]- Dr. Altamirano ([place]) accepting) Condition: STABLE Referrals: PCP,DEDRICK (PCP) YURY OSMAN DO Feb 05, 2021 14:26
--- NOTE | 2021-02-05 14:33 | EKG ---
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
[2021-02-05 14:48] LABS: BASO % 0 % (0-3); EOS # 0.1 x10^3/uL (0.0-0.7); EOS % 1 % (0-3); HEMATOCRIT 44.5 % (39.0-53.0); HEMOGLOBIN 15.2 g/dL (13.0-17.5); LYMPH # 1.1 x10^3/uL (1.0-4.8); LYMPH % 11 % (24-48); MEAN CORPUSCULAR HEMOGLOBIN 30 pg (25-35); MEAN CORPUSCULAR HGB CONC 34 g/dL (31-37); MEAN CORPUSCULAR VOLUME 89 fL (79-100); MONO # 0.6 x10^3/uL (0.0-1.1); MONO % 6 % (0-9); NEUT # 8.8 x10^3uL (1.8-7.7); NEUT % 82 % (31-73); PLATELET COUNT 269 x10^3/uL (140-400); RED BLOOD COUNT 5.01 x10^6/uL (4.30-5.70); RED CELL DISTRIBUTION WIDTH 12.3 % (11.5-14.5); WHITE BLOOD COUNT 10.7 x10^3/uL (4.0-11.0)
[2021-02-05 14:54] LABS: CALCIUM 8.6 mg/dL (8.5-10.1); CREATININE 1.2 mg/dL (0.7-1.3); GFR 64.9; POTASSIUM 3.9 mmol/L (3.5-5.1)
[2021-02-05 14:59] LABS: ALBUMIN 3.5 g/dL (3.4-5.0); ALBUMIN/GLOBULIN RATIO 0.9 (1.0-1.7); MAGNESIUM 2.4 mg/dL (1.8-2.4); TOTAL BILIRUBIN 0.3 mg/dL (0.2-1.0); TOTAL PROTEIN 7.3 g/dL (6.4-8.2)
[2021-02-05 15:05] LABS: ACETAMIN < 2 mcg/mL (10-30); SALIC < 2.8 mg/dL (2.8-20.0)
[2021-02-05 16:12] LABS: BARBITURATES NEG (NEG); BENZODIAZEPINES NEG (NEG); CANNABINOIDS NEG (NEG); COCAINE NEG (NEG); METHADONE NEG (NEG); OPIATES NEG (NEG); PHENCYCLIDINE NEG (NEG)
[2021-02-05 16:15] LABS: BACTERIA,URINE 0 /HPF (0-FEW); BILIRUBIN,URINE NEG (NEG); CLARITY,URINE CLEAR; COLOR,URINE YELLOW; GLUCOSE,URINE NEG (NEG); NITRITE,URINE NEG (NEG); RBC,URINE OCC /HPF (0-2); SQUAMOUS EPITHELIAL CELL,UR OCC /LPF; UROBILINOGEN,URINE 0.2 mg/dL (0.2 mg/dL); WBC,URINE OCC /HPF (0-4)
[2021-02-05 16:16] LABS: AMPHETAMINE/METHAMPHETAMINE POS (NEG)
== END 2021-02-05 20:35 ==
LOC: ER 13:46
DX: R45.851 Suicidal ideations (principal); F31.9 Bipolar disorder, unspecified; F15.10 Other stimulant abuse, uncomplicated; F12.10 Cannabis abuse, uncomplicated; Z20.822 Contact with and (suspected) exposure to COVID-19
CPT/HCPCS: 80053; 80307; 80329; 81001; 83735; 85025; 87426; 93005; 99285; C9803; U0003; G0480